=== PATIENT | male | born 1970 | race Caucasian/White ===

== ENCOUNTER 2019-05-30 17:55 | Emergency (ER) | payer OTHER ==
[~2019-05-30] VITALS: Ht 172.7 cm; Wt 74.8 kg
[2019-05-30 18:14] VITALS: BP_SYST 135
--- NOTE | 2019-05-30 18:20 | NUR ---
Patient triaged and placed in waiting room. VSS and patient appears in no acute distress at this time. Accompanied by , awaiting available bed, and MD notified of need for MSE.
--- NOTE | 2019-05-30 20:15 | NUR ---
Pt not in ER waiting room.
--- NOTE | 2019-05-30 20:36 | NUR ---
Patient left without being seen. No further treatment provided
--- NOTE | 2019-05-30 20:36 | NUR ---
Pt not present in ER waiting room.
== END 2019-05-30 20:36 | disposition left against medical advice (07) ==
LOC: SED 17:55
DX: S00.81XA Abrasion of other part of head, initial encounter (principal); V49.9XXA Car occupant (driver) (passenger) injured in unspecified traffic accident, initial encounter; Y93.89 Activity, other specified; Y92.413 State road as the place of occurrence of the external cause; Y99.8 Other external cause status